=== PATIENT | female | born 1965 | race Caucasian/White ===

== ENCOUNTER 2020-07-01 13:32 | Inpatient (IN) | payer BC, SELFPAY ==
--- NOTE | ~2020-07-01 | XR_ITS ---
XR hip RT 2V w AP pelvis DATE: 07/01/2020 13:53 INDICATION: Fall. Hip pain. TECHNIQUE: AP pelvis. AP and crosstable lateral views of right hip COMPARISON: None FINDINGS: The pubic symphysis and sacroiliac joints are intact. No pelvic fracture or bone destructio n. No evidence of right or left hip dislocation. There is a right subcapital femoral neck fracture with mild superolateral displacement of the distal fragment. IMPRESSION: Right subcapital femoral neck fracture Reviewed, dictated and finalized at location A. GRAPH MECHANIC
--- NOTE | ~2020-07-01 | XR_ITS ---
XR femur RT min 2V DATE: 07/01/2020 13:53 INDICATION: Fall. Right hip pain TECHNIQUE: AP and crosstable lateral views of right femur COMPARISON: None FINDINGS: There is a superolaterally displaced right subcapital femoral neck fracture. No other fract ure or dislocation of the femur. IMPRESSION: Right subcapital femoral neck fracture Reviewed, dictated and finalized at location A. R AND GENERATOR ASSEMBLER
--- NOTE | ~2020-07-01 | XR_ITS ---
XR chest 1V portable DATE: 07/01/2020 14:15 INDICATION: Hypertension. Smoker. Surgical clearance. TECHNIQUE: Portable AP chest on July 01, 2020 at 1417 hours COMPARISON: None FINDINGS: Normal heart size. No hilar or mediastinal enlargement. No pulmonary infiltrate or consolid ation, pleural effusion or pulmonary vascular congestion or pneumothorax. IMPRESSION: No active cardiopulmonary disease Reviewed, dictated and finalized at location A. HER
--- NOTE | ~2020-07-01 | XR_ITS ---
XR hip RT min 2V DATE: 07/02/2020 14:21 INDICATION: Postoperative right hip TECHNIQUE: Postoperative AP and crosstable lateral views of right hip COMPARISON: 08/29/2020 right hip FINDINGS: There is resection of the right femoral head and placement of a bipolar right hip prosthesi s which appears normally seated in the right acetabular fossa. Mild expected postoperative subcutaneous emphysema. There are rohith along the lateral aspect of the right hip. IMPRESSION: Right bipolar hip prosthesis Reviewed, dictated and finalized at location B. ING TORCH OPERATOR
--- NOTE | ~2020-07-01 | XR_ITS ---
EXAMINATION: XR foot RT 2V DATE: 07/01/2020 20:29 INDICATION: Toe pain at the right foot post fall TECHNIQUE: Dorsoplantar and lateral views of the right foot were obtained. COMPARISON: None. FINDINGS: Alignment is normal. No fracture. Joint spaces are normal. Soft tissues are unremarkable. IMPRESSION: 1. Negative right foot radiographs. Reviewed, dictated and finalized at location A. NCE AND HAIRSPRING ASSEMBLER
[2020-07-01 13:27] VITALS: BP 124/79; PULSE 97; RESP 19; TEMP 36.6; O2SAT 97
--- NOTE | 2020-07-01 13:37 | ED.FALL ---
HPI - Fall General Chief Complaint: Fall Stated Complaint: fall - hip pain Source: patient Mode of arrival: EMS Limitations: no limitations History of Present Illness HPI Narrative: A 55-year-old female comes into the emergency department with complaints of right hip pain after a slip and fall at home. Patient states she was doing laundry when the bottle of detergent accidentally spilled. Patient states she excellently stepped in the puddle of soap slipped and fell down onto her right side. Patient now complains of extreme right hip pain and is unable to move her right leg secondary to pain. Related Data Home Medications Medication Instructions Recorded Confirmed hydrochlorothiazide 12.5 mg PO DAILY 07/01/20 07/01/20 Allergies Allergy/AdvReac Type Severity Reaction Status Date / Time No Known Allergies Allergy Verified 07/01/20 16:57 Review of Systems Review of Systems: Narrative: CONSTITUTIONAL: Denies fever, chills, or sweats. EYES: Denies visual changes, redness, or discharge. ENT: Denies rhinorrhea, congestion, sore throat, or otalgia. CARDIOVASCULAR: Denies chest pain, palpitations, or edema. RESPIRATORY: Denies cough or dyspnea. GASTROINTESTINAL: Denies abdominal pain, nausea, vomiting, or diarrhea. GENITOURINARY: Denies dysuria or hematuria. SKIN: Denies rash or itching. MUSCULOSKELETAL: Denies back pain, joint pain, or myalgia. Endorses right hip pain NEUROLOGIC: Denies headache, numbness, dizziness, or weakness. PSYCHIATRIC: Denies anxiety or depression. [facility] Past Medical History Medical History (Updated 07/05/20 @ 10:27 by Dorene Interiano PA-C) Benign essential HTN Chronic focal neurological deficit Fatty liver Hx of smoking Postmenopausal bleeding Seizure disorder Surgical History Surgical History (Updated 07/05/20 @ 16:08 by Brock Gallegos DO) Displaced fracture of right femoral neck Right bipolar replacement July 02, 2020 Hx of dilation and curettage Family History Family History Mother Hypertension Coronary artery disease Alzheimer's dementia Sibling Acute myocardial infarction Hypertension Fatty liver Father Hypertension Fatty liver Alzheimer's dementia Skin cancer Social History Social History Social History: Smoking packs per day: 1 Smoking cigarettes per day: 20.0 Years smoked: 1 Smoking pack-years: 1.00 Smoking status: Former smoker Tobacco type: cigarettes Second hand tobacco smoke exposure: No Alcohol intake: current Substance use: never Substance use type: does not use Other substance usage details: drinks alcohol about once a year Gender identity (if verbalized by the patient): Female Spiritual care concerns: No Exam Narrative: Exam Narrative: GENERAL: Well-appearing, well-nourished, and in no acute distress. HEAD: Normocephalic, atraumatic. EYES: PERRLA and EOMI. ENT: Nares clear, no rhinorrhea or epistaxis. Mucous membranes moist. Oropharynx without tonsillar hypertrophy exudate or other lesions. Bilateral TMs pearly beasley nonbulging NECK: Supple. No adenopathy or masses. No carotid bruits or JVD CHEST: Clear to auscultation. No respiratory distress. No wheezes rales or rhonchi HEART: Regular rate and rhythm. No murmur heard. Normal peripheral pulses. ABDOMEN: Soft, nontender, nondistended, normal active bowel sounds. EXTREMITIES: Normal range of motion. No edema. TTP at the right hip and pelvis, limited range of motion of the right leg secondary to pain SKIN: Warm, dry, no rash. NEURO: No focal deficits. Alert and oriented x3. PSYCH: Normal mood and affect. Course Consultations Consultation #1: Quick review of the patient's x-ray shows a subcapital/femoral neck fracture. Case discussed with Dr. Church of orthopedics. He states that he will review the x-rays and call me back. Time: 14:11 Con
--- NOTE | 2020-07-01 14:07 | ECG_ITS ---
Measurements Intervals [place] Rate: 97 P: 30 CT: 144 QRS: 9 QRSD: 85 T: 160 QT: 332 QTc: 423 Interpretive Statements SINUS RHYTHM VOLTAGE CRITERIA FOR LVH BORDERLINE ST-T WAVE ABNORMALITY- DIFFUSE LEADS BORDERLINE ECG Electronically Signed On 07-01-2020 19:55:17 BUILDING DRAFTER by Feliciano Torres D.O.
[2020-07-01] MEDS: MORPHINE SULFATE (*CRX) 4 MG/ML INJ IV PUSH (14:08)
[2020-07-01 14:34] LABS: Basophils Percent Auto 0.3 % (0.2-1.2); Eosinophils Absolute Auto 0.1 K/mm3 (0-0.3); Eosinophils Percent Auto 0.8 % (0-4.4); Hematocrit 44.5 % (37.0-47.0); Hemoglobin 14.5 g/dL (12.0-15.0); Immature Granulocyte Absolute 0.06 K/mm3 (0.00-0.031); Immature Granulocyte Percent A 0.7 % (0-0.5); Lymphocytes Absolute Auto 1.67 K/mm3 (0.9-3.2); Lymphocytes Percent Auto 19.5 % (18.3-44.2); Mean Corpuscular HGB Conc 32.6 g/dl (32-36); Mean Corpuscular Hemoglobin 28.6 pg (26-34); Mean Corpuscular Volume 87.8 fl (80-100); Mean Platelet Volume 10.7 fl (7.4-10.4); Monocytes Absolute Auto 0.7 K/mm3 (0.1-0.6); Monocytes Percent Auto 8.5 % (2.6-8.5); Neutrophils Percent Auto 70.2 % (45.5-73.1); Platelet Count Result 191 k/mm3 (150-375); Red Blood Count 5.07 M/mm3 (4.2-5.4); Red Cell Distribution Width 14.5 % (11.5-14.5); White Blood Count 8.6 K/mm3 (4.5-10.0)
[2020-07-01] MEDS: KETOROLAC 15 MG/ML VIAL (*BKC) IV PUSH (14:43)
[2020-07-01 14:48] LABS: Anion Gap 6 mmol/L (8-16); Blood Urea Nitrogen 21 mg/dL (7-17); Calcium 9.8 mg/dL (8.4-10.2); Carbon Dioxide 29 mmol/L (22-30); Chloride 104 mmol/L (98-107); Estimated CRCL calculation 78 ml/min; Estimated Glomerular Filt Rate > 60; Glucose 149 mg/dL (65-105); Potassium 3.9 mmol/L (3.4-5.0); Sodium 139 mmol/L (137-145)
[2020-07-01 16:00] VITALS: BP 123/67; PULSE 63; RESP 18; TEMP 36.3; O2SAT 99
--- NOTE | 2020-07-01 16:14 | WPDANESEPP ---
Anes - Eval Pre Procedure Procedure: right hip pinning Date/Time: 07/01/20 16:14 Surgeon: luz maria Preop Diagnosis: right hip fracture Pre Op Diagnosis: R Femoral neck hip fracture Patient Data Age: 55 Gender: F Height: 1.68 m Weight: 91.4 kg Last Vital Signs Temp 36.6 C 07/01/20 13:27 Pulse 97 07/01/20 13:27 Resp 19 07/01/20 13:27 BP 124/79 07/01/20 13:27 Pulse Ox 97 07/01/20 13:27 Allergies Allergy/AdvReac Type Severity Reaction Status Date / Time No Known Allergies Allergy Verified 07/01/20 13:35 Home Medications Medication Instructions Recorded Confirmed Type atenolol 100 mg tablet 100 mg PO DAILY #90 tablet 12/27/19 12/27/19 Rx benazepril 40 mg tablet 40 mg PO DAILY #90 tablet 12/29/19 Rx atenolol 50 mg PO DAILY 07/01/20 History hydrochlorothiazide 12.5 mg PO DAILY 07/01/20 History Laboratory Tests 07/01/20 07/01/20 14:24 14:24 WBC 8.6 K/mm3 K/mm3 (4.5-10.0) RBC 5.07 M/mm3 M/mm3 (4.2-5.4) Hgb 14.5 g/dL g/dL (12.0-15.0) Hct 44.5 % % (37.0-47.0) MCV 87.8 fl fl (80-100) MCH 28.6 pg pg (26-34) MCHC 32.6 g/dl g/dl (32-36) RDW 14.5 % % (11.5-14.5) Plt Count 191 k/mm3 k/mm3 (150-375) MPV 10.7 fl H fl (7.4-10.4) Immature Gran % (Auto) 0.7 % H % (0-0.5) Neut % (Auto) 70.2 % % (45.5-73.1) Lymph % (Auto) 19.5 % % (18.3-44.2) [place] % (Auto) 8.5 % % (2.6-8.5) Eos % (Auto) 0.8 % % (0-4.4) Baso % (Auto) 0.3 % % (0.2-1.2) Lymph # (Auto) 1.67 K/mm3 K/mm3 (0.9-3.2) [place] # (Auto) 0.7 K/mm3 H K/mm3 (0.1-0.6) Eos # (Auto) 0.1 K/mm3 K/mm3 (0-0.3) Baso # (Auto) 0.0 K/mm3 K/mm3 (0.0-0.1) Abs Immat Gran (auto) 0.06 K/mm3 H K/mm3 (0.00-0.031) Absolute Neuts (auto) 6.0 K/mm3 K/mm3 (1.3-6.7) Absolute Nucleated RBC 0.0 K/mm3 K/mm3 (0.0-0.012) Nucleated RBC % 0.0 % % (0.0-0.2) Sodium 139 mmol/L mmol/L (137-145) Potassium 3.9 mmol/L mmol/L (3.4-5.0) Chloride 104 mmol/L mmol/L (98-107) Carbon Dioxide 29 mmol/L mmol/L (22-30) Anion Gap 6 mmol/L L mmol/L (8-16) BUN 21 mg/dL H mg/dL (7-17) Creatinine 0.80 mg/dL mg/dL (0.7-1.0) Estim Creat Clear Calc 78 ml/min ml/min Estimated GFR > 60 (59 - ) Glucose 149 mg/dL H mg/dL (65-105) Calcium 9.8 mg/dL mg/dL (8.4-10.2) ECG: NSR Patient hx anesthesia problems: none Family hx anesthesia problems: none PMFSH Past Medical History Medical History Benign essential HTN Cerebral palsy Fatty liver Hx of smoking Postmenopausal bleeding Seizure disorder Surgical History Surgical History Hx of dilation and curettage Family History Family History Mother Hypertension Sibling Hypertension Social History Social History Social History: Smoking packs per day: 0.5 Smoking cigarettes per day: 10.0 Years smoked: 10 Smoking pack-years: 5.00 Smoking status: Former smoker Tobacco type: cigarettes Second hand tobacco smoke exposure: No Alcohol intake: never Substance use: never Substance use type: does not use Gender identity (if verbalized by the patient): Female Exam Day of Procedure 07/01/20 16:14
[2020-07-01 16:48] VITALS: BP 136/74; PULSE 93; RESP 18; O2SAT 99
--- NOTE | 2020-07-01 16:54 | ADMGEN ---
This patient, Britney Overton, was admitted to Medical Room 253-01. Patient/family oriented to hospital policies and general routines including ID bracelet, bed and alarms, visiting hours, pain management, procedures, bathroom and other care routines, personal items, smoking policy, room service/diet, and visiting hours. Information on how to activate the Rapid Response Team has been discussed. Patient/Family are encouraged to report perceived risks to care and to ask questions if they do not understand what they are told or what they should do.
--- NOTE | 2020-07-01 17:07 | PM.CNOR ---
Assessment and Plan Assessment and plan (1) Displaced fracture of right femoral neck: Code(s): S72.001A - Fracture of unspecified part of neck of right femur, initial encounter for closed fracture Status: Acute Assessment and Plan: 55-year-old female with history of CP and right-sided weakness. She has got an acute right femoral neck fracture. I discussed the condition with her. Recommend right bipolar hip replacement and will plan on doing this tomorrow as long as there are no medical contraindications. With her weakness on the right side, using a bipolar will likely have the least problem with potential dislocation. Smoking does put her at increased risk for wound healing issues and DVT.Risks and potential complications were discussed in detail and questions answered. History of Present Illness HPI Consult date: 07/01/20 Consult reason: fracture Chief complaint: R Femoral neck hip fracture Narrative: 55-year-old female who fell in her laundry room at her home earlier today suffering a displaced right femoral neck fracture. No other injuries with this occurrence. History significant for cerebral palsy which has left her with chronic right-sided weakness as well as a fatty liver. She is but lives with her ex- who she is friends with. Review of Systems Constitutional: Constitutional: Denies chills and Denies fever(s) Eyes: Eyes: Reports no additional eye complaints ENT: Reports system reviewed and no additional complaints, except as documented Cardiovascular: Cardiovascular: Denies chest pain Respiratory: Respiratory: Reports no additional respiratory complaints Gastrointestinal: Gastrointestinal: Denies abdominal pain Neurologic: Reports other (History of CP with right-sided weakness) [facility] Past Medical History Medical History Benign essential HTN Cerebral palsy Fatty liver Hx of smoking Postmenopausal bleeding Seizure disorder Surgical History Surgical History Hx of dilation and curettage Family History Family History Mother Hypertension Sibling Hypertension Social History Social History Social History: Smoking packs per day: 0.5 Smoking cigarettes per day: 10.0 Years smoked: 10 Smoking pack-years: 5.00 Smoking status: Former smoker Tobacco type: cigarettes Second hand tobacco smoke exposure: No Alcohol intake: never Substance use: never Substance use type: does not use Gender identity (if verbalized by the patient): Female Meds Home Medications and Allergies Home Medications Medication Instructions Recorded Confirmed Type atenolol 100 mg tablet 100 mg PO DAILY #90 tablet 12/27/19 12/27/19 Rx benazepril 40 mg tablet 40 mg PO DAILY #90 tablet 12/29/19 Rx atenolol 50 mg PO DAILY 07/01/20 History hydrochlorothiazide 12.5 mg PO DAILY 07/01/20 History Allergies Allergy/AdvReac Type Severity Reaction Status Date / Time No Known Allergies Allergy Verified 07/01/20 16:57 Vital Signs Vital Signs - 24 hr 07/01/20 13:27 07/01/20 16:48 Temperature 97.8 F Pulse Rate 97 93 Respiratory Rate 19 18 Blood Pressure 124/79 136/74 Pulse Oximetry 97 99 Exam Const: General: cooperative, no acute distress and alert Nutritional Appearance: other Orientation/consciousness: patient oriented x3 HENMT: Head: normal to inspection Ears: hearing grossly normal bilaterally Face and sinus: face symmetric Eyes: Alignment and Position: alignment normal and position normal Sclera: sclerae normal Neck: Neck: normal visual inspection and nontender Chest: Chest palpation & inspection: normal inspection of the chest Resp: Effort & Inspection: normal respiratory effort and able to speak in complete sentences
[2020-07-01 17:09] VITALS: BMI 34.7
[2020-07-01] MEDS: HYDROcodone/acetaminophen (*CRX) 5-325 MG TABLET 1 TAB PO (17:09)
[2020-07-01 20:00] VITALS: PULSE 80; RESP 18; O2SAT 96
--- NOTE | 2020-07-01 20:18 | PM.IMHP ---
H&P: HPI History of Present Illness Date/Time: 07/01/20 20:18 Chief Complaint: Acute fall and ambulatory dysfunction at home. Narrative: This is a 55 year old female with known history of HTN and chronic right side weakness and decreased sensation from who today presented to the hospital after suffering a fall at home. She heard a loud crash in the laundry room and didn't realize that her liquid detergent had fallen, broke, and spilled on the floor. She immediately slipped as she entered the room and fell on her right side which is her weak side. She immediately had right hip pain and was not able to ambulate. The patient denied any head trauma or loss of consciousness. She also complains of right great toe pain which she states is unusual because she cannot even wiggle her right toes due to her cerebral palsy since . The patient was evaluated in the ER tonight and found to have a right subcapital femoral neck fracture on plain film xray. She was already evaluated by the Orthopedic surgeon who will take her to the OR tomorrow. Currently her pain is well controlled. No other complaints. Review of Systems Review of Systems: All systems reviewed & are unremarkable except as noted in HPI and below PMFSH Past Medical History Medical History Benign essential HTN Chronic focal neurological deficit Fatty liver Hx of smoking Postmenopausal bleeding Seizure disorder Surgical History Surgical History Displaced fracture of right femoral neck Right bipolar replacement July 02, 2020 Hx of dilation and curettage Family History Family History Mother Hypertension Coronary artery disease Alzheimer's dementia Sibling Acute myocardial infarction Hypertension Fatty liver Father Hypertension Fatty liver Alzheimer's dementia Skin cancer Social History Social History Social History: Smoking packs per day: 1 Smoking cigarettes per day: 20.0 Years smoked: 1 Smoking pack-years: 1.00 Smoking status: Former smoker Tobacco type: cigarettes Second hand tobacco smoke exposure: No Alcohol intake: current Substance use: never Substance use type: does not use Other substance usage details: drinks alcohol about once a year Gender identity (if verbalized by the patient): Female Spiritual care concerns: No Meds Home Medications and Allergies Home Medications Medication Instructions Recorded Confirmed Type atenolol 100 mg tablet 100 mg PO DAILY #90 tablet 12/27/19 07/01/20 Rx benazepril 40 mg tablet 40 mg PO DAILY #90 tablet 12/29/19 07/01/20 Rx hydrochlorothiazide 12.5 mg PO DAILY 07/01/20 07/01/20 History cephalexin 500 mg PO Q12H 5 Days #10 cap 07/05/20 Rx docusate sodium 100 mg PO BID PRN #30 cap 07/05/20 Rx hydrocodone-acetaminophen 1 tablet PO QID PRN #30 tablet 07/05/20 Rx rivaroxaban [Xarelto] 10 mg PO QAM #13 tablet 07/05/20 Rx Allergies Allergy/AdvReac Type Severity Reaction Status Date / Time No Known Allergies Allergy Verified 07/01/20 16:57 Vital Signs Vital Signs - 24 hr 07/01/20 13:27 07/01/20 16:00 07/01/20 16:48 Temperature 36.6 C 36.3 C L Pulse Rate 97 63 93 Respiratory Rate 19 18 18 Blood Pressure 124/79 123/67 136/74 Pulse Oximetry 97 99 99 Exam Const: General: cooperative, alert and awake Nutritional Appearance: well nourished Orientation/consciousness: patient oriented x3 HENMT: Head: normal to inspection General nose exam: Normal external nose present Face and sinus: normal facial exam Mouth: Yes Normal oral and palatal mucosa present and Yes oropharynx normal Eyes: Pupils: Equal, round and reactive pupils present EOM: EOMs intact bilaterally Neck: Neck: supple and no JVD Thyroid: thyroid normal L
[2020-07-01 22:00] VITALS: BP 109/48; PULSE 80; RESP 18; TEMP 36.2; O2SAT 96
[2020-07-02] VITALS (14 sets, daily range): BP systolic 110–132; BP diastolic 61–84; PULSE 65–99; RESP 14–18; TEMP 36.6–37.5; O2SAT 83–100
[2020-07-02] MEDS: HYDROcodone/acetaminophen (*CRX) 5-325 MG TABLET 1 TAB PO ×2 (02:47→23:27)
[2020-07-02 05:52] LABS: Basophils Percent Auto 0.3 % (0.2-1.2); Eosinophils Percent Auto 0.3 % (0-4.4); Hemoglobin 13.1 g/dL (12.0-15.0); Immature Granulocyte Absolute 0.04 K/mm3 (0.00-0.031); Immature Granulocyte Percent A 0.3 % (0-0.5); Lymphocytes Absolute Auto 1.79 K/mm3 (0.9-3.2); Lymphocytes Percent Auto 15.6 % (18.3-44.2); Mean Corpuscular HGB Conc 32.8 g/dl (32-36); Mean Corpuscular Hemoglobin 28.5 pg (26-34); Mean Corpuscular Volume 87.1 fl (80-100); Mean Platelet Volume 10.4 fl (7.4-10.4); Monocytes Absolute Auto 1.1 K/mm3 (0.1-0.6); Monocytes Percent Auto 9.5 % (2.6-8.5); Neutrophils Absolute Auto 8.5 K/mm3 (1.3-6.7); Platelet Count Result 179 k/mm3 (150-375); Red Blood Count 4.59 M/mm3 (4.2-5.4); Red Cell Distribution Width 14.7 % (11.5-14.5); White Blood Count 11.5 K/mm3 (4.5-10.0)
[2020-07-02 06:20] LABS: Anion Gap 4 mmol/L (8-16); Blood Urea Nitrogen 20 mg/dL (7-17); Calcium 9.2 mg/dL (8.4-10.2); Carbon Dioxide 29 mmol/L (22-30); Chloride 106 mmol/L (98-107); Estimated CRCL calculation 72 ml/min; Estimated Glomerular Filt Rate > 60; Glucose 140 mg/dL (65-105); Sodium 139 mmol/L (137-145)
--- NOTE | 2020-07-02 10:20 | PC.NURSE ---
07/02/20 1020 Patient to OR per bed.
--- NOTE | 2020-07-02 10:26 | PM.IMPN ---
Progress Note: A&P Assessment and Plan (1) Displaced fracture of right femoral neck: Code(s): S72.001A - Fracture of unspecified part of neck of right femur, initial encounter for closed fracture Status: Acute Assessment and Plan: Patient sustained mechanical fall at home 07/01. She denies striking her head or losing consciousness. XR shows displaced right subcapital femoral neck fracture. Appreciate Dr Church's recommendations. Plan is for right bipolar hip replacement this morning. Postoperative wound care, pain control, and DVT prophylaxis per orthopedic recommendations. (2) Benign essential HTN: Code(s): I10 - Essential (primary) hypertension Status: Chronic Assessment and Plan: Blood pressure stable this morning last 127/68; continue her home atenolol, lisinopril, HCTZ. Monitor BP and adjust treatment as needed. (3) Chronic focal neurological deficit: Code(s): R29.818 - Other symptoms and signs involving the nervous system Status: Chronic Assessment and Plan: Patient has cerebral palsy listed in the chart however she tells me she does not actually have a diagnosis of CP. She has had right-sided arm and leg neurovascular deficits since . She tells me she normally ambulates without a cane or walker. No acute issues. (4) Leukocytosis: Code(s): D72.829 - Elevated white blood cell count, unspecified Status: Acute Assessment and Plan: A mild leukocytosis is noted which I suspect may be related to stress reaction/trauma. No signs or symptoms of infectious process are noted at this time. Repeat CBC in AM. Subjective Date/time seen: 07/02/20 0900 Interval history: Ms. Overton is a 55yo F admitted for right hip fracture after a mechanical fall at home yesterday. She reports her pain is controlled at rest, worse when she makes any movement in the bed. She did not sleep much last night but otherwise feels okay. She denies chest pain, shortness of breath or cough. She denies nausea or vomiting. Review of Systems Review of Systems: All systems reviewed & are unremarkable except as noted in HPI and below Exam Narrative: Exam Narrative: General: Female resting supine in bed in no acute distress. HEENT: Normocephalic, EOMI, oral mucosa moist. Cardiovascular: Rate and rhythm are regular. Respiratory: Lungs clear to auscultation bilaterally. Respirations even and non-labored. Abdomen: Soft, non-tender, non-distended, bowel sounds present. Extremities: Peripheral pulses intact. No edema or pain to palpation. Right upper extremity is a bit contracted; this is chronic and her baseline. Right lower extremity is neurovascularly intact distal to the fracture site and she can wiggle toes CATHERINE. Neuro: No focal neurological deficits. Speech is mildly drawn-out which is her baseline. Objective Data Vital Signs Vital Signs: Last Vital Signs Temp 97.8 F 07/02/20 10:30 Pulse 78 07/02/20 10:30 Resp 16 07/02/20 10:30 BP 127/68 07/02/20 10:30 Pulse Ox 95 07/02/20 10:30 Intake/Output Intake/Output: Intake & Output 06/29/20 06/30/20 07/01/20 07/02/20 23:59 23:59 23:59 23:59 Intake Total 500 Output Total 1300 Balance 500 -1300 Meds/Results Medications: Active Medications Generic Name Dose Route Start Last Admin Trade Name Freq PRN Reason Stop Dose Admin Hydrocodone Bitart/Acetaminophen 1 tab 07/01/20 14:27 07/02/20 02:47 Hydrocodone/Acetaminophen (*Crx) 5-325 Mg Tablet PO 1 tab Q4H PRN Administration Pain Rated 4-6 Atenolol 100 mg 07/02/20 09:00 Atenolol 50 Mg Tablet PO DAILY [facility] Hydrochlorothiazide 12.5 mg 07/02/20 09:00 Hydrochlorothiazide 12.5 Mg Capsule PO DAILY [facility] Lisinopril 40 mg 07/02/20 09:00 Lisinop
--- NOTE | 2020-07-02 10:52 | WPDANESEFPP ---
Anes - Eval Final PreProcedure Day of Procedure 07/02/20 10:52 Patient weight: obese Heart: regular rate and rhythm Lungs: clear to auscultation and normal air movement Airway: Mallampati scale class III Neurological: alert and oriented Last oral intake: >/= 8 hours ASA classification: III Emergent: no Anesthetic plan: proceed Anesthesia type and monitoring: general LMA and standard monitoring Informed Consent: The patient's anesthetic plan and its attendant risks and benefits were discussed with the patient/family/POA. Questions were solicited and answers provided to the satisfaction of the patient/family/POA.
--- NOTE | 2020-07-02 10:55 | WPDHPUPDATE1 ---
History and Physical Update Update Date/Time: 07/02/20 10:55 History and Physical has been reviewed, including an updated exam of the patient. There are NO changes in the patient's condition. Risks, benefits, and alternatives have been discussed and questions answered. Patient agrees to proceed with procedure.
[2020-07-02] MEDS: LACTATED RINGERS 1,000 ML 30 ML IV CONT ×2 (10:58→14:07)
[2020-07-02] MEDS: TRANEXAMIC ACID 1,000MG/ISO100 1,000 MG/100 ML BAG 200 MG IVPB (11:19)
[2020-07-02] MEDS: ceFAZolin 2 GM/D5W 50 ML 2 GM/50 ML BAG IVPB ×2 (11:27→19:14)
[2020-07-02] MEDS: BUPIVACAINE/EPINEPHRINE 0.25% 50 ML VIAL INFILTRATE (12:16)
[2020-07-02] MEDS: TRANEXAMIC ACID 1,000 MG/10 ML AMPUL 1000 MG XX (12:17)
--- NOTE | 2020-07-02 13:56 | PM.PROC ---
Procedure Note - Detailed Date of procedure: 07/02/20 Pre-op diagnosis: R Femoral neck hip fracture Post-op diagnosis: same Procedure performed: Right hip bipolar hemiarthroplasty Description of procedure: The patient was identified and proper site identified, then taken back to the operating room and transferred to the OR table. After general anesthetic induction and intubation, the patient was positioned in the left lateral decubitus position in the usual manner for a right hip procedure, and secured with padded hip positioner making sure the torso and extremities were properly padded. The right lower extremity was prepped and draped in the usual sterile fashion. A curvilinear incision was made over the greater trochanter and sharp dissection carried down through the subcutaneous tissue to the gluteus fascia and IT band which were divided in line with the incision. The anterior 1/2 of the abductors were sharply dissected off the greater trochanter developing the interval between the abductors and the capsule. The capsule was divided in an inverted-T fashion exposing the fracture site. A neck cut was made about one fingerbreadth above the level of the lesser trochanter. Head fragment was removed and the acetabulum cleared of debris. The acetabulum was sized to 44 mm. The proximal femur was prepared for the size 10 integral pressfit standard offset stem. Trial reduction was undertaken and the hip was noted to be stable through range of motion. The real stem was inserted. Through trialing it was noted that a size 28 minus six head with 44 cup configuration gave jain of leg lengths with excellent stability. The neck of the femoral component was cleaned and dried and the real components in those sizes were attached to the femoral stem. After final thorough lavage of the joint, the hip was again reduced. The capsule and ashlie-incisional tissues were infiltrated with 60 mL of 0.25% Marcaine and epinephrine solution. 1 g of tranexamic acid was placed deep in the wound. The capsule was repaired with #2 Ethibond suture. The abductors were repaired to the greater trochanter with #5 Ethibond suture passed through a bony bridge. The deep fascia was reapproximated with 0 looped PDS suture. Deeper layers of the subcu reapproximated with 0 looped PDS. 2-0 strata fix and rohith were used for the skin, and a sterile dressing was applied. Procedure was well tolerated and there were no known intraoperative complications. Anesthesia: GETA Surgeon: Jorge Alberto Church MD Radar Signal Processing Engineer: Riddhi Vang Estimated blood loss (mL): 250 Drains: No Packing: No Pathology: yes (Femoral head) Complications: No immediate complications Condition: stable Disposition: PACU
[2020-07-02] MEDS: lisinopriL 20 MG TABLET 40 MG PO (15:23)
[2020-07-02] MEDS: atenoloL 50 MG TABLET 100 MG PO (15:23)
[2020-07-02] MEDS: hydroCHLOROthiazide 12.5 MG CAPSULE PO (15:24)
[2020-07-02] MEDS: SODIUM CHLORIDE 0.9% IV 1,000 ML 125 ML IV CONT (15:37)
[2020-07-02] MEDS: DOCUSATE SODIUM 100 MG CAPSULE PO (16:42)
--- NOTE | 2020-07-02 19:18 | PC.NURSE ---
Pt return from OR per bed at 1520 07/02/20.
[2020-07-02] MEDS: HYDROcodone/acetaminophen (*CRX) 5-325 MG TABLET 2 TAB PO (19:32)
[2020-07-03] VITALS (7 sets, daily range): BP systolic 98–105; BP diastolic 48–70; PULSE 78–107; RESP 12–20; TEMP 36.6–37.6; O2SAT 90–98
[2020-07-03] MEDS: ceFAZolin 2 GM/D5W 50 ML 2 GM/50 ML BAG IVPB ×2 (03:33→11:47)
[2020-07-03] MEDS: HYDROcodone/acetaminophen (*CRX) 5-325 MG TABLET 2 TAB PO (03:33)
[2020-07-03 05:39] LABS: Basophils Percent Auto 0.3 % (0.2-1.2); Eosinophils Percent Auto 0.1 % (0-4.4); Hemoglobin 12.4 g/dL (12.0-15.0); Immature Granulocyte Absolute 0.07 K/mm3 (0.00-0.031); Immature Granulocyte Percent A 0.6 % (0-0.5); Lymphocytes Absolute Auto 1.88 K/mm3 (0.9-3.2); Lymphocytes Percent Auto 16.3 % (18.3-44.2); Mean Corpuscular HGB Conc 31.8 g/dl (32-36); Mean Corpuscular Hemoglobin 28.7 pg (26-34); Mean Corpuscular Volume 90.3 fl (80-100); Mean Platelet Volume 10.4 fl (7.4-10.4); Monocytes Absolute Auto 1.5 K/mm3 (0.1-0.6); Neutrophils Percent Auto 69.7 % (45.5-73.1); Platelet Count Result 163 k/mm3 (150-375); Red Blood Count 4.32 M/mm3 (4.2-5.4); Red Cell Distribution Width 15.3 % (11.5-14.5); White Blood Count 11.5 K/mm3 (4.5-10.0)
[2020-07-03 06:00] LABS: Anion Gap 3 mmol/L (8-16); Blood Urea Nitrogen 12 mg/dL (7-17); Calcium 8.8 mg/dL (8.4-10.2); Carbon Dioxide 30 mmol/L (22-30); Chloride 106 mmol/L (98-107); Estimated CRCL calculation 72 ml/min; Estimated Glomerular Filt Rate > 60; Glucose 136 mg/dL (65-105); Potassium 4.1 mmol/L (3.4-5.0); Sodium 139 mmol/L (137-145)
--- NOTE | 2020-07-03 07:16 | PM.PNORT ---
Progress Note: A&P Assessment and Plan (1) Displaced fracture of right femoral neck: Code(s): S72.001A - Fracture of unspecified part of neck of right femur, initial encounter for closed fracture Status: Acute Assessment and Plan: 55-year-old female postop day one right hip hemiarthroplasty. Surgery discussed with her. Will begin physical therapy. She may be a candidate for acute rehab before going home and we discussed this today. Following. Time Spent With Patient Time with patient: 15 - 25 minutes Subjective Subjective Date/Time Seen: 07/03/20 07:16 Review of Systems Constitutional: Constitutional: Denies chills Eyes: Eyes: Reports no additional eye complaints ENT: Reports system reviewed and no additional complaints, except as documented Cardiovascular: Cardiovascular: Denies chest pain Respiratory: Respiratory: Reports no additional respiratory complaints Gastrointestinal: Gastrointestinal: Denies abdominal pain and Denies bloating Exam Const: General: cooperative, no acute distress and alert Nutritional Appearance: other Orientation/consciousness: patient oriented x3 HENMT: Head: normal to inspection Ears: hearing grossly normal bilaterally Face and sinus: face symmetric Mouth: Yes moist mucous membranes Teeth and gingiva: fair dentition Eyes: Alignment and Position: alignment normal and position normal Sclera: sclerae normal Neck: Neck: normal visual inspection and nontender Chest: Chest palpation & inspection: normal inspection of the chest Resp: Effort & Inspection: normal respiratory effort and able to speak in complete sentences GI: Inspection: other (Belly nondistended) Skin: General skin exam: normal color Rashes: no rashes Neuro: General: patient oriented x3 Cognition (Neuro): normal cognition Speech: normal speech Extrem: General: normal to inspection and other Other: Exam of the right hip wound shows that it is well approximated with no drainage. Minimal swelling and no erythema. Neurovascular status baseline right lower extremity. Calves negative. Psych: Appearance: grossly normal Mental Status: mental status grossly normal Objective Data Vital Signs Vital Signs: Vital Signs - 24 hr 07/02/20 10:30 07/02/20 14:07 07/02/20 14:20 Temperature 97.8 F 99.5 F Pulse Rate 78 89 77 Respiratory Rate 16 16 14 Blood Pressure 127/68 110/84 130/68 Pulse Oximetry 95 100 100 07/02/20 14:35 07/02/20 14:50 07/02/20 15:05 Temperature 99.5 F Pulse Rate 99 79 80 Respiratory Rate 18 16 14 Blood Pressure 116/67 121/75 125/74 Pulse Oximetry 94 95 93 07/02/20 15:13 07/02/20 15:20 07/02/20 15:23 Temperature 98.4 F Pulse Rate 83 86 Respiratory Rate 16 Blood Pressure 123/61 Pulse Oximetry 83 L 98 07/02/20 15:28 07/02/20 15:58 07/02/20 16:58 Temperature 98.6 F 99.4 F 99.4 F Pulse Rate 81 85 87 Respiratory Rate 16 16 16 Blood Pressure 125/63 129/64 132/80 Pulse Oximetry 97 98 07/02/20 20:58 07/03/20 00:58 07/03/20 04:58 Temperature 98.3 F 97.9 F 97.8 F Pulse Rate 82 78 79 Respiratory Rate 18 16 16 Blood Pressure 115/70 101/48 L 98/59 L Pulse Oximetry 97 94 93 Intake/Output Intake/Output: Intake & Output 06/30/20 07/01/20 07/02/20 07/03/20 23:59 23:59 23:59 23:59 Intake Total 500 / 500 850 / 850 300 / 300 Output Total 2325 / 2325 300 / 300 Balance 500 / 500 -1475 / -1475 0 / 0 Meds/Results Medications: Active Medications Generic Name Dose Route Start Last Admin Trade Name Freq PRN Reason Stop Dose Admin Acetaminophen 650 mg 07/02/20 15:13 Acetaminophen 325 Mg Tablet PO Q6H PRN Mild Pain (1-3) or Fever Hydrocodone Bitart/Acetaminophen 1 tab 07/02/20 15:13 07/02/20 23:27 Hydrocodone/Acetaminophen (*Crx) 5-325 Mg Tablet PO 1 tab Q3H PRN Administration Pain Rated 4-6 Hydrocodone Bitart/Acetaminophen 2 tab 07/02/20 15:13 07/03/20 03:33 Hydrocodone/Acetaminophen (*Crx) 5-325 Mg T
[2020-07-03] MEDS: DOCUSATE SODIUM 100 MG CAPSULE PO ×2 (08:32→17:20)
--- NOTE | 2020-07-03 08:37 | WPDANESPN ---
Anes - Prog Note Post-Op Date/Time: 07/03/20 08:37 Cardiovascular status: normal Respiratory status: normal Airway patency: baseline Mental status: baseline Post-Op hydration status: normal Vital Signs: Last Vital Signs Temp 36.6 C 07/03/20 04:58 Pulse 79 07/03/20 04:58 Resp 16 07/03/20 04:58 BP 98/60 L 07/03/20 08:27 Pulse Ox 93 07/03/20 04:58 Pain Score (VAS): 3 I/O: Intake & Output 07/02/20 07/03/20 07/03/20 23:59 07:59 15:59 Intake Total 300 400 Output Total 900 450 Balance -600 -50 Laboratory Tests 07/03/20 05:12 07/03/20 05:12 07/03/20 07/03/20 05:12 05:12 WBC 11.5 H RBC 4.32 Hgb 12.4 Hct 39.0 MCV 90.3 MCH 28.7 MCHC 31.8 L RDW 15.3 H Plt Count 163 MPV 10.4 Immature Gran % (Auto) 0.6 H Neut % (Auto) 69.7 Lymph % (Auto) 16.3 L [place] % (Auto) 13.0 H Eos % (Auto) 0.1 Baso % (Auto) 0.3 Lymph # (Auto) 1.88 [place] # (Auto) 1.5 H Eos # (Auto) 0.0 Baso # (Auto) 0.0 Abs Immat Gran (auto) 0.07 H Absolute Neuts (auto) 8.0 H Absolute Nucleated RBC 0.0 Nucleated RBC % 0.0 Sodium 139 Potassium 4.1 Chloride 106 Carbon Dioxide 30 Anion Gap 3 L BUN 12 D Creatinine 0.90 Estim Creat Clear Calc 72 Estimated GFR > 60 Glucose 136 H Calcium 8.8 Post-procedural complaints: none Patient Feedback: Patient satisfied with anesthetic care.
[2020-07-03] MEDS: HYDROcodone/acetaminophen (*CRX) 5-325 MG TABLET 1 TAB PO ×2 (10:11→17:20)
--- NOTE | 2020-07-03 11:16 | PM.IMPN ---
Progress Note: A&P Assessment and Plan (1) Displaced fracture of right femoral neck: Code(s): S72.001A - Fracture of unspecified part of neck of right femur, initial encounter for closed fracture Status: Acute Assessment and Plan: Status post right hemiarthroplasty 07/02/[address] loera -patient is doing well with physical therapy and will likely discharge in the next day or 2 -currently on Xarelto 10 mg daily for DVT prophylaxis -will see how she does with PT and OT and decide if she needs acute rehab versus SNF versus home health (2) Benign essential HTN: Code(s): I10 - Essential (primary) hypertension Status: Chronic Assessment and Plan: Blood pressure has been running low but patient has been asymptomatic -will hold the lisinopril, hydrochlorothiazide and atenolol today (3) Toe pain, right: Code(s): M79.674 - Pain in right toe(s) Status: Acute Assessment and Plan: No complaints today -x-ray negative for fracture Time Spent With Patient Time with patient: 15 - 25 minutes Subjective Date/time seen: 07/03/20 11:16 Interval history: Pt is a 55 year old here for hip fracture. Patient was seen today and states she is doing well. She had her pain under control but after she started doing therapy this morning did need some pain medications. She said she has been up and walking a little bit and feels okay. Pt denies nausea, vomiting, fevers, chills, constipation, diarrhea, chest pain, sob, lightheadedness, dizziness or abdominal pain. She has not had a bowel movement yet Review of Systems Review of Systems: All systems reviewed & are unremarkable except as noted in HPI and below Exam Narrative: Exam Narrative: General: Well developed well nourished patient in NAD HEENT: normocephalic Neck: supple, no pain to the cervical spine Neuro: Alert and oriented x4 CV:RRR Resp:CTA Abd: Soft, non distended. No pain to palpation. Positive bowel sounds Extremities: Right hip bandage intact without erythema, swelling or discharge. Patient is slightly weak on plantar flexion but states this is chronic. Objective Data Vital Signs Vital Signs: Vital Signs - 24 hr 07/02/20 14:07 07/02/20 14:20 07/02/20 14:35 Temperature 99.5 F Pulse Rate 89 77 99 Respiratory Rate 16 14 18 Blood Pressure 110/84 130/68 116/67 Pulse Oximetry 100 100 94 07/02/20 14:50 07/02/20 15:05 07/02/20 15:13 Temperature 99.5 F 98.4 F Pulse Rate 79 80 83 Respiratory Rate 16 14 16 Blood Pressure 121/75 125/74 123/61 Pulse Oximetry 95 93 83 L 07/02/20 15:20 07/02/20 15:23 07/02/20 15:28 Temperature 98.6 F Pulse Rate 86 81 Respiratory Rate 16 Blood Pressure 125/63 Pulse Oximetry 98 97 07/02/20 15:58 07/02/20 16:58 07/02/20 20:58 Temperature 99.4 F 99.4 F 98.3 F Pulse Rate 85 87 82 Respiratory Rate 16 16 18 Blood Pressure 129/64 132/80 115/70 Pulse Oximetry 98 97 07/03/20 00:58 07/03/20 04:58 07/03/20 08:27 Temperature 97.9 F 97.8 F Pulse Rate 78 79 Respiratory Rate 16 16 Blood Pressure 101/48 L 98/59 L 98/60 L Pulse Oximetry 94 93 07/03/20 08:58 Temperature 97.8 F Pulse Rate 83 Respiratory Rate 16 Blood Pressure Pulse Oximetry 98 Intake/Output Intake/Output: Intake & Output 06/30/20 07/01/20 07/02/20 07/03/20 23:59 23:59 23:59 23:59 Intake Total 500 850 880 Output Total 2325 450 Balance 500 -1475 430 Meds/Results Medications: Active Medications Generic Name Dose Route Start Last Admin Trade Name Freq PRN Reason Stop Dose Admin Acetaminophen 650 mg 07/02/20 15:13 Acetaminophen 325 Mg Tablet PO Q6H PRN Mild Pain (1-3) or Fever Hydrocodone Bitart/Acetaminophen 1 tab 07/02/20 15:13 07/03/20 10:11 Hydrocodone/Acetaminophen (*Crx) 5-325 Mg Tablet PO 1 tab Q3H PRN Administration Pain Rated 4-6 Hydrocodone Bitart/Acetaminophen 2 tab 07/02/20 15:13 07/03/20 03:33 Hydrocodone/Ac
[2020-07-03] MEDS: RIVAROXABAN 10 MG TABLET PO (14:47)
[2020-07-04] VITALS (7 sets, daily range): BP systolic 97–132; BP diastolic 64–82; PULSE 79–100; RESP 16–20; TEMP 36.1–37.3; O2SAT 94–97
[2020-07-04] MEDS: HYDROcodone/acetaminophen (*CRX) 5-325 MG TABLET 1 TAB PO ×3 (00:08→13:02)
[2020-07-04 05:54] LABS: Hematocrit 36.8 % (37.0-47.0); Hemoglobin 11.7 g/dL (12.0-15.0); Mean Corpuscular HGB Conc 31.8 g/dl (32-36); Mean Corpuscular Hemoglobin 28.7 pg (26-34); Mean Corpuscular Volume 90.2 fl (80-100); Mean Platelet Volume 10.6 fl (7.4-10.4); Platelet Count Result 146 k/mm3 (150-375); Red Blood Count 4.08 M/mm3 (4.2-5.4); Red Cell Distribution Width 15.3 % (11.5-14.5); White Blood Count 12.1 K/mm3 (4.5-10.0)
[2020-07-04 06:11] LABS: Alanine Aminotransferase 34 U/L (4-35); Albumin Level 3.6 g/dL (3.5-5.1); Alkaline Phosphatase 44 U/L (38-126); Anion Gap 5 mmol/L (8-16); Aspartate Amino Transferase 51 U/L (14-36); Bilirubin,Total 2.1 mg/dL (0.2-1.3); Blood Urea Nitrogen 15 mg/dL (7-17); Carbon Dioxide 29 mmol/L (22-30); Chloride 103 mmol/L (98-107); Estimated CRCL calculation 81 ml/min; Estimated Glomerular Filt Rate > 60; Glucose 124 mg/dL (65-105); Potassium 3.7 mmol/L (3.4-5.0); Sodium 137 mmol/L (137-145)
[2020-07-04] MEDS: DOCUSATE SODIUM 100 MG CAPSULE PO ×2 (08:34→16:59)
[2020-07-04] MEDS: lisinopriL 20 MG TABLET 40 MG PO (10:14)
[2020-07-04] MEDS: hydroCHLOROthiazide 12.5 MG CAPSULE PO (10:15)
[2020-07-04] MEDS: atenoloL 50 MG TABLET 100 MG PO (10:15)
[2020-07-04] MEDS: RIVAROXABAN 10 MG TABLET PO (10:17)
--- NOTE | 2020-07-04 11:24 | PM.PNORT ---
Progress Note: A&P Assessment and Plan (1) Displaced fracture of right femoral neck: Code(s): S72.001A - Fracture of unspecified part of neck of right femur, initial encounter for closed fracture Status: Acute Assessment and Plan: 55-year-old female postop day two right hip bipolar hemiarthroplasty and doing well. Awaiting placement for rehab. Following. Time Spent With Patient Time with patient: 15 - 25 minutes Subjective Subjective Date/Time Seen: 07/04/20 11:24 Post Op day: 2 (Right hip bipolar hemiarthroplasty) Interval history: 55-year-old female postop day two right hip bipolar hemiarthroplasty. Not having much pain, rather just some stiffness in her right leg. Review of Systems Constitutional: Constitutional: Denies fever(s) Eyes: Eyes: Reports no additional eye complaints ENT: Reports system reviewed and no additional complaints, except as documented Cardiovascular: Cardiovascular: Denies dyspnea on exertion Respiratory: Respiratory: Reports no additional respiratory complaints Gastrointestinal: Gastrointestinal: Denies abdominal pain Exam Const: General: cooperative, no acute distress and alert Nutritional Appearance: other Orientation/consciousness: patient oriented x3 HENMT: Head: normal to inspection Ears: hearing grossly normal bilaterally Face and sinus: face symmetric Mouth: Yes moist mucous membranes Teeth and gingiva: fair dentition Eyes: Alignment and Position: alignment normal and position normal Sclera: sclerae normal Neck: Neck: normal visual inspection and nontender Chest: Chest palpation & inspection: normal inspection of the chest Resp: Effort & Inspection: normal respiratory effort and able to speak in complete sentences GI: Inspection: other (Nondistended) Skin: General skin exam: normal color Rashes: no rashes Neuro: General: patient oriented x3 Cognition (Neuro): normal cognition Speech: normal speech Sensory Exam: normal sensation Extrem: General: normal to inspection and other Other: Exam of the right hip wound shows that it is well opposed. No erythema. Minimal swelling. Right hip manipulation causes some discomfort. Right lower extremity neurovascular status stable. Psych: Appearance: grossly normal Mental Status: mental status grossly normal Objective Data Vital Signs Vital Signs: Vital Signs - 24 hr 07/03/20 14:00 07/03/20 18:00 07/03/20 20:00 Temperature 98.7 F 99.7 F H 97.8 F Pulse Rate 82 103 H 107 H Respiratory Rate 16 12 20 Blood Pressure 101/56 L 104/66 105/70 Pulse Oximetry 93 90 94 07/04/20 02:00 07/04/20 05:15 07/04/20 08:39 Temperature 97.1 F L 96.9 F L Pulse Rate 79 95 Respiratory Rate 20 20 Blood Pressure 102/68 132/82 128/80 Pulse Oximetry 94 97 07/04/20 10:15 Temperature Pulse Rate 100 Respiratory Rate Blood Pressure Pulse Oximetry Intake/Output Intake/Output: Intake & Output 07/01/20 07/02/20 07/03/20 07/04/20 23:59 23:59 23:59 23:59 Intake Total 500 / 500 850 / 850 980 / 980 710 / 710 Output Total 2325 / 2325 550 / 550 300 / 300 Balance 500 / 500 -1475 / -1475 430 / 430 410 / 410 Meds/Results Medications: Active Medications Generic Name Dose Route Start Last Admin Trade Name Freq PRN Reason Stop Dose Admin Acetaminophen 650 mg 07/02/20 15:13 Acetaminophen 325 Mg Tablet PO Q6H PRN Mild Pain (1-3) or Fever Hydrocodone Bitart/Acetaminophen 1 tab 07/02/20 15:13 07/04/20 08:33 Hydrocodone/Acetaminophen (*Crx) 5-325 Mg Tablet PO 1 tab Q3H PRN Administration Pain Rated 4-6 Hydrocodone Bitart/Acetaminophen 2 tab 07/02/20 15:13 07/03/20 03:33 Hydrocodone/Acetaminophen (*Crx) 5-325 Mg Tablet PO 2 tab Q6H PRN Administration Pain Rated 7-10 Al Hydrox/Mg Hydrox/Simethicone 30 ml 07/02/20 15:13 Mag Hydrox/Al Hydrox/Simeth 30 Ml Udc PO Q6H PRN Indigestion Atenolol 100 mg 07/02/20 09:00 07/04/20 10:15 Atenolol 50 Mg
[2020-07-04 13:11] LABS: Add Urine Microscopic? YES; Appearance Urine Cloudy (Clear); Bacteria Urine Trace /hpf; Bilirubin Urine Negative (Negative); Blood Urine Negative (Negative); Color Urine Yellow (Yellow); Glucose Urine UA 3+ mg/dL (Negative); Ketones Urine Trace mg/dL (Negative); Leukocyte Esterase Ur 1+ LEU/UL (Negative); Mucus Urine Rare /lpf; Nitrate Urine Negative (Negative); Protein Urine 1+ mg/dL (Negative); Specific Grav Ur 1.018 (1.001-1.035); Squamous Epithelial Cell Urine Many /hpf (Few); WBC Urine 31-50 /hpf
[2020-07-04 13:13] LABS: SARS-CoV-2 RNA PCR Negative
--- NOTE | 2020-07-04 13:34 | PM.IMPN ---
Progress Note: A&P Assessment and Plan (1) Displaced fracture of right femoral neck: Code(s): S72.001A - Fracture of unspecified part of neck of right femur, initial encounter for closed fracture Status: Acute Assessment and Plan: Status post right hemiarthroplasty 07/02/[address] loera -patient is doing well with physical therapy and will likely discharge in the next day or 2. awaiting insurance auth -currently on Xarelto 10 mg daily for DVT prophylaxis -will see how she does with PT and OT and decide if she needs acute rehab versus SNF versus home health (2) Benign essential HTN: Code(s): I10 - Essential (primary) hypertension Status: Chronic Assessment and Plan: Blood pressure has been running low but patient has been asymptomatic -Ctoninue lisinopril, hydrochlorothiazide and atenolol (3) Toe pain, right: Code(s): M79.674 - Pain in right toe(s) Status: Acute Assessment and Plan: No complaints today -x-ray negative for fracture Additional Plan Subjective Date/time seen: 07/04/20 13:34 Interval history: Pt is a 55 year old here for hip fracture. Patient was seen today and states she is doing well. She had her pain under control and she has been sitting in the chair. Pt denies nausea, vomiting, fevers, chills, constipation, diarrhea, chest pain, sob, lightheadedness, dizziness or abdominal pain. She has not had a bowel movement yet. She has a hx of elevated liver enzymes and says it runs in her family as her dad and brother have it too. No hx of hepatitis. She does not drink etoh Exam Narrative: Exam Narrative: General: Well developed well nourished patient in NAD HEENT: normocephalic Neck: supple, no pain to the cervical spine Neuro: Alert and oriented x4 CV:RRR Resp:CTA Abd: Soft, non distended. No pain to palpation. Positive bowel sounds Extremities: Right hip bandage intact without erythema, swelling or discharge. Patient is slightly weak on plantar flexion but states this is chronic. Objective Data Vital Signs Vital Signs: Vital Signs - 24 hr 07/03/20 14:00 07/03/20 18:00 07/03/20 20:00 Temperature 98.7 F 99.7 F H 97.8 F Pulse Rate 82 103 H 107 H Respiratory Rate 16 12 20 Blood Pressure 101/56 L 104/66 105/70 Pulse Oximetry 93 90 94 07/04/20 02:00 07/04/20 05:15 07/04/20 08:39 Temperature 97.1 F L 96.9 F L Pulse Rate 79 95 Respiratory Rate 20 20 Blood Pressure 102/68 132/82 128/80 Pulse Oximetry 94 97 07/04/20 10:00 07/04/20 10:15 Temperature 98.1 F Pulse Rate 96 100 Respiratory Rate 16 Blood Pressure 131/75 Pulse Oximetry 95 Intake/Output Intake/Output: Intake & Output 07/01/20 07/02/20 07/03/20 07/04/20 23:59 23:59 23:59 23:59 Intake Total 500 850 980 710 Output Total 2325 550 300 Balance 500 -1475 430 410 Meds/Results Medications: Active Medications Generic Name Dose Route Start Last Admin Trade Name Freq PRN Reason Stop Dose Admin Acetaminophen 650 mg 07/02/20 15:13 Acetaminophen 325 Mg Tablet PO Q6H PRN Mild Pain (1-3) or Fever Hydrocodone Bitart/Acetaminophen 1 tab 07/02/20 15:13 07/04/20 13:02 Hydrocodone/Acetaminophen (*Crx) 5-325 Mg Tablet PO 1 tab Q3H PRN Administration Pain Rated 4-6 Hydrocodone Bitart/Acetaminophen 2 tab 07/02/20 15:13 07/03/20 03:33 Hydrocodone/Acetaminophen (*Crx) 5-325 Mg Tablet PO 2 tab Q6H PRN Administration Pain Rated 7-10 Al Hydrox/Mg Hydrox/Simethicone 30 ml 07/02/20 15:13 Mag Hydrox/Al Hydrox/Simeth 30 Ml Udc PO Q6H PRN Indigestion Atenolol 100 mg 07/02/20 09:00 07/04/20 10:15 Atenolol 50 Mg Tablet PO 100 mg DAILY ESTELLE Administration Docusate Sodium 100 mg 07/02/20 17:00 07/04/20 08:34 Docusate Sodium 100 Mg Capsule PO 100 mg BID ESTELLE Administration Hydrochlorothiazide 12.5 mg 07/02/20 09:00 07/04/20 10:15 Hydrochlorothiazide 12.5 Mg Capsule PO 1
[2020-07-05 05:40] VITALS: BP 105/61; PULSE 81; RESP 18; TEMP 36.6; O2SAT 98
[2020-07-05 05:47] LABS: Hematocrit 35.3 % (37.0-47.0); Hemoglobin 11.3 g/dL (12.0-15.0); Mean Corpuscular Hemoglobin 28.5 pg (26-34); Mean Corpuscular Volume 88.9 fl (80-100); Mean Platelet Volume 10.9 fl (7.4-10.4); Platelet Count Result 165 k/mm3 (150-375); Red Blood Count 3.97 M/mm3 (4.2-5.4); White Blood Count 11.4 K/mm3 (4.5-10.0)
[2020-07-05 06:09] LABS: Alanine Aminotransferase 33 U/L (4-35); Albumin Level 3.3 g/dL (3.5-5.1); Alkaline Phosphatase 42 U/L (38-126); Anion Gap 3 mmol/L (8-16); Aspartate Amino Transferase 46 U/L (14-36); Bilirubin,Total 1.4 mg/dL (0.2-1.3); Blood Urea Nitrogen 14 mg/dL (7-17); Calcium 8.6 mg/dL (8.4-10.2); Carbon Dioxide 33 mmol/L (22-30); Chloride 104 mmol/L (98-107); Estimated CRCL calculation 72 ml/min; Estimated Glomerular Filt Rate > 60; Glucose 119 mg/dL (65-105); Potassium 3.8 mmol/L (3.4-5.0); Sodium 140 mmol/L (137-145)
[2020-07-05 06:44] LABS: Hepatitis B Surface Antigen Negative (Negative)
[2020-07-05 06:49] LABS: HAV RESULT Negative (Negative); Hepatitis B Core IgM Result Negative (Negative)
[2020-07-05 07:01] LABS: Hepatitis C Virus Antibody Negative (Negative)
[2020-07-05 08:31] VITALS: PULSE 100
[2020-07-05] MEDS: atenoloL 50 MG TABLET 100 MG PO (08:31)
[2020-07-05] MEDS: HYDROcodone/acetaminophen (*CRX) 5-325 MG TABLET 1 TAB PO (08:32)
[2020-07-05] MEDS: lisinopriL 20 MG TABLET 40 MG PO (08:32)
[2020-07-05] MEDS: DOCUSATE SODIUM 100 MG CAPSULE PO (08:32)
[2020-07-05] MEDS: hydroCHLOROthiazide 12.5 MG CAPSULE PO (08:32)
[2020-07-05] MEDS: RIVAROXABAN 10 MG TABLET PO (08:32)
[2020-07-05 08:57] VITALS: BP 108/82; PULSE 100; RESP 18; TEMP 37.2; O2SAT 97
--- NOTE | 2020-07-05 10:27 | PM.DS ---
DS: Admitting Diagnosis Admitting Diagnosis Admitting Diagnosis: Right hip fracture DS: Discharge Diagnosis Discharge Diagnosis (1) Displaced fracture of right femoral neck: Code(s): S72.001A - Fracture of unspecified part of neck of right femur, initial encounter for closed fracture Status: Acute Assessment and Plan: Status post right hemiarthroplasty 07/02/[address] church -patient is doing well with physical therapy and able to do stairs -pt has a one floor house and only a few steps getting in and lives with someone who can help her -continue 13 more days of Xarelto 10 mg daily for DVT prophylaxis then aspirin thereafter -follow up with Dr. Church -discharge with home health (2) Benign essential HTN: Code(s): I10 - Essential (primary) hypertension Status: Chronic Assessment and Plan: Last blood pressure 108/82 -Ctoninue lisinopril, hydrochlorothiazide and atenolol (3) Toe pain, right: Code(s): M79.674 - Pain in right toe(s) Status: Acute Assessment and Plan: No complaints today -x-ray negative for fracture (4) Abnormal finding on urinalysis: Code(s): R82.90 - Unspecified abnormal findings in urine Status: Acute Assessment and Plan: UA somewhat suspicious for UTI and patient had leukocytosis. Ceftriaxone was started during hospitalization and she will be discharged on Keflex. Her urine culture will be monitored and medications adjusted as appropriate DS: Summary Hospital Course Hospital Course: Patient is a 55-year-old female who presented emergency room for fall after she slipped and fell on feet urgent with immediate pain to her right hip. Vitals in the ER were 36.6? C, pulse 97, respiratory rate 19, blood pressure 124/79, pulse ox 97 on room air. Hip x-ray showed right subcapital femoral neck fracture. Chest x-ray was negative.Service and underwent a right hemiarthroplasty 07/02/20 and did well with this. She initially was going to SNF but while waiting for insurance authorization she did well with physical therapy and is going to discharge on home health. She is going to continue Xarelto for 13 more days for DVT prophylaxis and then switch to aspirin. Her home medications were not changed. She had a leukocytosis while hospitalized and was likely due to inflammatory response but her UA was slightly abnormal and was given antibiotics at discharge and I will monitor her culture and adjust as necessary. The day of discharge she did well with physical therapy and was using the stairs. She understands that she needs to get a walker and is going to do her exercises at home. She was educated about the worrisome signs and symptoms to come back to emergency room for and was discharged in stable condition. She is able to afford the Xarelto at 25 dollars. Status at Discharge Functional status at discharge: uses cane/walker Overall status at discharge: patient is progressing back to baseline Time Spent with Patient Time attestation: Total time spent providing and/or coordinating discharge services:34 min Time spent: Greater than 30 minutes Exam Narrative: Exam Narrative: General: Well developed well nourished patient in NAD HEENT: normocephalic Neck: supple, no pain to the cervical spine Neuro: Alert and oriented x4 CV:RRR Resp:CTA Abd: Soft, non distended. No pain to palpation. Positive bowel sounds Extremities: Right hip bandage intact without erythema, swelling or discharge. Patient is slightly weak on plantar flexion but states this is chronic. DS: Data Data Completed and Pending Pending studies at discharge: Pending at discharge 07/02/20 12:34 Surgical [PTH] Routine Labs on day of discharge: Labs from last 24 hours 07/05/20 07/05/20 07/05/20 05:30 05:29 05:29 WBC 11.4 H RBC 3.97 L Hgb 11.3 L Hct 35.3 L MCV 88.9 MCH 28.5 MCHC 32.0 RDW 15.0 H Plt Count 165 MPV 10.9 H So
--- NOTE | 2020-07-05 11:04 | PC.NURSE ---
On 07/05/20, the student, [ Sulaiman Smith], provided care and completed [employer] documentation on this patient. I have reviewed the student's documentation and agree with the findings.
--- NOTE | 2020-07-05 12:10 | PCOTNOTE ---
Attempted to see Patient for OT A.M. treatment session. Patient declined therapy at this time, stating she is waiting for her ride to get here and is being discharged. Patient was asked if she had any questions. Patient verbalized she feels comfortable and is ready to go home.
--- NOTE | 2020-07-06 09:28 | PC.NURSE ---
urine cx is negative. JOSE Ojeda aware.
== END 2020-07-05 12:20 | disposition home health service (06) | DRG 522 ==
LOC: ANHED 14:03 → ANH2MED 18:31
PROVIDERS: Family Medicine; Orthopaedic Surgery; Physician Assistant; Admitting Provider Internal Medicine; Emergency Provider Emergency Medicine; PCP Family Medicine; Visit Provider Physician Assistant
PROC: 0SRR0JA Replacement of Right Hip Joint, Femoral Surface with Synthetic Substitute, Uncemented, Open Approach (ICD-10-PCS; CPT 27125; principal; 2020-07-02 12:00)
DX: S72.011A Unspecified intracapsular fracture of right femur, initial encounter for closed fracture (principal); M79.674 Pain in right toe(s); W18.39XA Other fall on same level, initial encounter; Z20.822 Contact with and (suspected) exposure to COVID-19; I10 Essential (primary) hypertension; G80.9 Cerebral palsy, unspecified; K76.0 Fatty (change of) liver, not elsewhere classified; D72.829 Elevated white blood cell count, unspecified; E66.9 Obesity, unspecified; Z68.34 Body mass index [BMI] 34.0-34.9, adult; Z87.891 Personal history of nicotine dependence
CPT/HCPCS: 36415; 71045; 73502; 73552; 73620; 80048; 80074; 80076; 81001; 85025; 85027; 87086; 88305; 88307; 88311; 88342; 88360; 93005; 96374; 97110; 97116; 97161; 97165; 97530; 97535; 99285; A9270; C1713; C1776; C9803; J0690; J0696; J1100; J1170; J1885; J2250; J2270; J2370; J2405; J2704; J2710; J3010; J7030; J7120; U0003; U0005

== ENCOUNTER 2020-10-16 07:30 | Outpatient (RCR) | payer BC, SELFPAY ==
--- NOTE | 2020-09-12 09:18 | PTOPEVAL ---
Thank you for referring Britney Overton to [facility] The patient is scheduled to be seen for therapy? 2 x/week for 6-8 weeks. Please review, sign, date and return this plan of care YOVANI. I agree with and certify that the following plan of care is medically necessary. 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 She is following post-op hip precautions. She lives with her with 5 steps to enter. She received AFO 08/18/20. She has had weakness of right UE/LE since . Subjective Information She slipped on a wet floor Query Text:As Reported By Patient/ causing the fracture. She was Family using a walker to assist with mobility. She transitioned herself to a cane on 08/31/20. She received home health services for 4 wk after surgery. She is performing her HEP. 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 Previous Treatments Previous Treatments For This Problem home health Pain Assessment Self Report Pain Assessment Right Hip(s) Reported Pain Level 0 Pain Description Aching Pain Frequency Acute,Intermittent Lowest Pain Intensity 0 Greatest Pain Intensity 3 Pain Aggravating Factors Sitting Lower Extremity Range of Motion General Lower Extremity Range of Motion Reason Not Measured Surgery Precautions Limitations Muscle Tone,Soft Tissue Restriction Gross Lower Extremity Range of Motion Passive ROM right hip flex: 90 Comments dg, abd : 30 deg, ankle DF: - 5 deg Lower Extremity Muscle Strength Testing Hip Strength Right Hip Flexion Strength 4- Good - Hip Extension Strength 3+ Fair + Hip Abduction Strength 2 Poor Hip Adduction Strength 2 Poor Hip Strength Comments hip ext measured supine Left Hip Flexion Strength 4+ Good + Hip Exte
--- NOTE | 2020-10-16 08:19 | PTOPEVAL ---
Thank you for referring Britney Overton to [facility].? Britney has received 11 therapy visits to address muscle weakness and impaired mobility as a result of hip surgery. She demonstrates improved LE strength, improved functional mobility and indep with her HEP. She has reached maximal potential with skilled therapy services at this time. Will DC skilled therapy services at this time with goals partially met. Please review, sign, date and return this discharge summary YOVANI. I agree with and certify that the following plan of care is medically necessary. 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 She is following post-op hip precautions. She lives with her with 5 steps to enter. She received AFO 08/18/20. She has had weakness of right UE/LE since . Subjective Information She denies any pain in right Query Text:As Reported By Patient/ knee or hip. She reports Family continued difficulty with negotiating steps. She is not using a device at home, but will use the cane in the community. She is performing her HEP with continued weakness of right LE. She has difficulty with hip abduction motion. 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 Pain Assessment Right Knee(s) Reported Pain Level 0 Lowest Pain Intensity 0 Right Hip(s) Reported Pain Level 1 Lowest Pain Intensity 0 Greatest Pain Intensity 1 Lower Extremity Muscle Strength Testing Hip Strength Right Hip Flexion Strength 4+ Good + Hip Extension Strength 4 Good Hip Abduction Strength 3 Fair Hip Adduction Strength 3 Fair Left Hip Flexion Strength 4+ Good + Hip Extension Strength 4 Good Hip Abduction Strength 3 Fair Hip Adduction Strength 3 Fair Knee Strength Right Knee Flexion Strength 4+ Good + Knee Extension Strength 5
== END 2020-10-16 11:45 | disposition home or self-care (01) ==
LOC: ANHPT 07:30
PROVIDERS: PCP Family Medicine; Visit Provider Orthopaedic Surgery
DX: S72.001D Fracture of unspecified part of neck of right femur, subsequent encounter for closed fracture with routine healing (principal)
CPT/HCPCS: 97110; 97112; 97162

== ENCOUNTER 2021-04-14 14:23 | Emergency (ER) | payer BC, SELFPAY ==
[2021-04-14 14:33] VITALS: BP 127/65; PULSE 75; RESP 18; TEMP 37.3; O2SAT 97
--- NOTE | 2021-04-14 14:36 | ED.URI ---
HPI - URI/Sore Throat General Chief Complaint: Upper Respiratory Infection Stated Complaint: congestion Time Seen by Provider: 04/14/21 14:36 Source: patient Mode of arrival: ambulatory Limitations: no limitations History of Present Illness HPI Narrative: Britney Overton is a 56 yo female with a PMH of HTN who [facility] with complaints of sinus congestion and not feeling very well since last Thursday, has congestion, cough, occasionally has blown out green mucus, she had some bloody nasal drainage also but has been using Afrin. states she has not felt too bad but coughs a lot Related Data Allergies Allergy/AdvReac Type Severity Reaction Status Date / Time No Known Allergies Allergy Verified 04/14/21 14:33 Review of Systems Review of Systems: CONSTITUTIONAL: Denies fever, chills, sweats. EYES: Denies visual changes, redness, discharge. ENT: Has rhinorrhea, has congestion, sore throat, otalgia. CARDIOVASCULAR: Denies chest pain, palpitations, edema. RESPIRATORY: Denies dyspnea, wheezing, has cough GASTROINTESTINAL: Denies abdominal pain, nausea, vomiting, diarrhea. GENITOURINARY: Denies dysuria, hematuria, abnormal discharge SKIN: Denies rash or itching. NEUROLOGIC: Denies numbness, or focal weakness. PSYCHIATRIC: Denies anxiety or depression. [facility] Past Medical History Medical History Benign essential HTN BMI 31.0-31.9,adult Chronic focal neurological deficit Fatty liver Hx of smoking Postmenopausal bleeding Seizure disorder Surgical History Surgical History Displaced fracture of right femoral neck Right bipolar replacement July 02, 2020 Hx of dilation and curettage Family History Family History Mother Hypertension Coronary artery disease Alzheimer's dementia Sibling Acute myocardial infarction Hypertension Fatty liver Father Hypertension Fatty liver Alzheimer's dementia Skin cancer Social History Social History Social History: Smoking packs per day: 1 Smoking cigarettes per day: 20.0 Years smoked: 1 Smoking pack-years: 1.00 Tobacco type: cigarettes Second hand tobacco smoke exposure: No Alcohol intake: current Substance use: never Substance use type: does not use Other substance usage details: drinks alcohol about once a year Gender identity (if verbalized by the patient): Female Sexual Orientation (if Verbalized by the Patient): Straight or Heterosexual Spiritual care concerns: No Comments At time of signature, I agree with nursing past medical, surgical, social and family history. There is no relevant family history pertinent to the presenting complaint. Exam Narrative: GENERAL: This is a well-nourished, well-developed patient, in moderate distress. HEAD: normocephalic, atraumatic. EYES: Sclera clear/white. Vision is grossly intact. EARS: External ears normal, auditory canals clear and without drainage, TMs normal without perforation. Hearing grossly intact. NOSE: External nose normal with nasal discharge, nares with redness, has rhinorrhea. THROAT: Mucous membranes moist, posterior pharynx mild erythema NECK: Neck supple, non-tender CARDIOVASCULAR: Regular rate and rhythm without murmurs, gallops, or rubs. RESPIRATORY: Clear to auscultation. Breath sounds equal bilaterally. No wheezes, rales, or rhonchi. GASTROINTESTINAL: Abdomen soft, SKIN: warm, intact with no suspicious lesions or rash, good texture and turgor. NEURO: awake, alert, and oriented to person, place and time. There were no obvious focal neurologic abnormalities. Steady gait EXTREMITIES: Normal range of motion. BACK: Nontender without deformity Course Course Emergency Course: Patient comes here with sinus congestion that started last Tue
[2021-04-14 14:54] VITALS: BP 127/65; PULSE 75; RESP 18; TEMP 37.3; O2SAT 97
== END 2021-04-14 15:07 | disposition home or self-care (01) ==
PROVIDERS: Emergency Provider Nurse Practitioner; PCP Family Medicine
DX: J01.10 Acute frontal sinusitis, unspecified (principal); I10 Essential (primary) hypertension; K76.0 Fatty (change of) liver, not elsewhere classified; Z87.891 Personal history of nicotine dependence
CPT/HCPCS: 99213; G0463

== ENCOUNTER 2021-05-16 16:16 | Outpatient (CLI) | payer BC, SELFPAY ==
--- NOTE | ~2021-05-16 | MM_ITS ---
EXAMINATION: MM screening aris BI w zain HISTORY: Screening mammogram TECHNIQUE: Craniocaudal and mediolateral oblique 3-D tomosynthesis images were obtained and synthetic 2-D images were generated. CAD analysis was submitted and interpreted. COMPARISON: 11/11/2014 BREAST PARENCHYMAL COMPOSITION: There are scattered areas of fibroglandular density. FINDINGS: There is no evidence of suspicious mass, calcification, or architectural distortion to sugg est malignancy in either breast. There has been no suspicious interval change. IMPRESSION: 1. No mammographic evidence of malignancy. 2. Recommend routine screening mammography in one year. BI-RADS Category 1: Negative Reviewed, dictated and finalized at location A. 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
== END 2021-05-16 16:17 | disposition home or self-care (01) ==
LOC: ANHIMG 16:18
PROVIDERS: PCP Family Medicine; Visit Provider Family Medicine
DX: Z12.31 Encounter for screening mammogram for malignant neoplasm of breast (principal)
CPT/HCPCS: 77063; 77067

== ENCOUNTER 2022-01-21 09:55 | Outpatient (CLI) | payer BC, SELFPAY ==
[2022-01-21 10:32] LABS: Alanine Aminotransferase 48 U/L (6-35); Albumin Level 4.5 g/dL (3.5-5.1); Alkaline Phosphatase 73 U/L (38-126); Anion Gap 9 mmol/L (8-16); Aspartate Amino Transferase 38 U/L (14-36); Bilirubin,Total 0.8 mg/dL (0.2-1.3); Blood Urea Nitrogen 16 mg/dL (7-17); Calcium 9.9 mg/dL (8.4-10.2); Carbon Dioxide 27 mmol/L (22-30); Chloride 104 mmol/L (98-107); Cholesterol 175 mg/dL (0-200); Estimated Glomerular Filt Rate > 60; Glucose 114 mg/dL (65-110); HDL Direct 39 mg/dL; Potassium 4.4 mmol/L (3.4-5.0); Sodium 140 mmol/L (137-145); Triglycerides 153 mg/dL (<150)
[2022-01-21 10:43] LABS: LDL Cholesterol Direct 93 mg/dL
[2022-01-21 10:51] LABS: Vitamin D 25 Hydroxy 25.4 ng/mL
== END 2022-01-21 09:56 | disposition home or self-care (01) ==
LOC: ANHLAB 09:57
PROVIDERS: PCP Family Medicine; Visit Provider Nurse Practitioner Family
DX: Z13.1 Encounter for screening for diabetes mellitus (principal); K76.0 Fatty (change of) liver, not elsewhere classified; I10 Essential (primary) hypertension; Z13.29 Encounter for screening for other suspected endocrine disorder; Z13.220 Encounter for screening for lipoid disorders; E55.9 Vitamin D deficiency, unspecified
CPT/HCPCS: 36415; 80053; 80061; 82306; 84443

== ENCOUNTER 2023-09-12 10:16 | Outpatient (CLI) | payer BC, SELFPAY ==
[2023-09-12 10:32] LABS: Hematocrit 44.5 % (37.0-47.0); Mean Corpuscular HGB Conc 31.5 g/dl (32-36); Mean Corpuscular Hemoglobin 28.5 pg (26-34); Mean Corpuscular Volume 90.4 fl (80-100); Mean Platelet Volume 10.3 fl (7.4-10.4); Platelet Count Result 205 k/mm3 (150-375); Red Blood Count 4.92 M/mm3 (4.2-5.4); Red Cell Distribution Width 14.8 % (11.5-14.5); White Blood Count 7.9 K/mm3 (4.5-10.0)
[2023-09-12 10:44] LABS: Alanine Aminotransferase 52 U/L (6-35); Albumin Level 4.3 g/dL (3.5-5.1); Alkaline Phosphatase 76 U/L (38-126); Anion Gap 6 mmol/L (4-12); Aspartate Amino Transferase 48 U/L (14-36); Bilirubin,Total 0.9 mg/dL (0.2-1.3); Blood Urea Nitrogen 16 mg/dL (7-17); Carbon Dioxide 29 mmol/L (22-30); Chloride 104 mmol/L (98-107); Cholesterol 163 mg/dL (0-200); Estimated Glomerular Filt Rate > 60; Glucose 125 mg/dL (65-110); HDL Direct 38 mg/dL; Potassium 4.3 mmol/L (3.4-5.0); Sodium 139 mmol/L (137-145); Triglycerides 125 mg/dL (<150)
[2023-09-12 10:55] LABS: LDL Cholesterol Direct 99 mg/dL
[2023-09-12 11:13] LABS: Thyroid Stimulating Hormone 0.863 uIU/mL (0.465-4.680)
== END 2023-09-12 10:17 | disposition home or self-care (01) ==
LOC: ANHLAB 10:17
PROVIDERS: PCP Family Medicine; Visit Provider Physician Assistant Medical
DX: I10 Essential (primary) hypertension (principal); Z13.29 Encounter for screening for other suspected endocrine disorder
CPT/HCPCS: 36415; 80053; 80061; 84443; 85027

== ENCOUNTER 2023-11-23 08:28 | Outpatient (CLI) | payer BC, SELFPAY ==
--- NOTE | ~2023-11-23 | MM_ITS ---
EXAMINATION: MM screening aris BI w zain HISTORY: Screening TECHNIQUE: Craniocaudal and mediolateral oblique 3-D tomosynthesis images were obtained and synthetic 2-D images were generated. CAD analysis was submitted and interpreted. COMPARISON: Comparison to multiple prior studies sequentially, with oldest reviewed study dated 11/11. BREAST PARENCHYMAL COMPOSITION: Not dense: There are scattered areas of fibroglandular density. FINDINGS: There is no evidence of suspicious mass, calcification, or architectural distortion to sugg est malignancy in either breast. There has been no suspicious interval change. IMPRESSION: 1. No mammographic evidence of malignancy. 2. Recommend routine screening mammography in one year. BI-RADS Category 1: Negative Reviewed, dictated and finalized at location B.
== END 2023-11-23 08:29 | disposition home or self-care (01) ==
LOC: ANHIMG 08:30
PROVIDERS: PCP Family Medicine; Visit Provider Physician Assistant Medical
DX: Z12.31 Encounter for screening mammogram for malignant neoplasm of breast (principal)
CPT/HCPCS: 77063; 77067

== ENCOUNTER 2024-08-19 10:13 | Emergency (ER) | payer BC, SELFPAY ==
--- NOTE | ~2024-08-19 | US_ITS ---
EXAMINATION: US venous doppler [facility] DATE: 08/19/2024 12:23 INDICATION: Left lower limb pain TECHNIQUE: Grayscale ultrasound images without and with compression and Doppler ultrasound images of the left lower extremity veins were obtained. COMPARISON: None. FINDINGS: The visualized portions of left common femoral vein, profunda (deep) femoral vein, femoral vein, popl iteal vein, peroneal veins, posterior tibial veins, gastrocnemius vein and greater saphenous vein out flow are patent. IMPRESSION: 1. No deep venous thrombosis in the left lower limb. Reviewed, dictated and finalized at location A.
[2024-08-19 10:24] VITALS: BP 138/77; PULSE 63; RESP 16; TEMP 37.1; O2SAT 96
--- OUTSIDE RECORDS SUMMARY | 2024-08-19 10:37 | XMS_ITS | Continuity of Care Document ---
[facility] Organization [facility] Address [address] [place] [address] Phone Care Team Providers Care Information Tech Name Role Phone Joellen Simpson MD Unavailable Unavailabl e Allergies, Adverse Reactions, Alerts Substance Reaction Status Criticality No Known Drug Allergies Other Active No I nformation Medications Medication Instructions Dosage Effective Dates (start - stop) Status Comments ALPRAZOLAM 0.5 MG TABLET 1 at bedtime an d one prn - Active BENAZEPRIL HCL 40 MG TABLET 1 QD-daily - Active TENORMIN 100 MG TABLET 1 QD-daily - Ac tive LAZARO 180 MG TABLET 1 QD-daily - Act bridget HYDROCHLOROTHIAZIDE 25 MG TAB 1 QAM - Active Celexa 20 mg Tab take 1 tablet (20MG) by oral route every day 20 MG - Active NASONEX 50 MCG NASAL SPRAY 2 QD-daily - Active Advance Directives Directive Yes / No Effective Date File Name No Information Encounters Encounter Description Practice Location Reason(s) For Visit Diagnoses Date Provider Providers Copied on Encounter [facility], [address], [place], [place], [id number], [place] tel:[phone] [place] No Information Tatiana Cuenca. [address] [place], [place], [id number]. tel:[phone] [facility], [address], [place], [place], [address], [place] tel:[phone] [place] No Information Tatiana Cuenca. [address] [place], [place], [address]. tel:[phone] [facility], [address], [place], [place], [address], [place] tel:[phone] [place] No Information Alessandra Vogt [address] [place], [place], [id number], [place]. tel:[phone] [facility], [address], [place], [place], [address], [place] tel:[phone] [place] No Information Alessandra Cook. [address] [place], [place], [address], [place]. tel:[phone] [facility], [address], [place], [place], [address], tel:[phone] [place] Tatiana Giles [address] [place] [address], [id number]. tel:[phone] Referring Provider: Joellen Simpson, [place], [address] . tel:[phone] [facility], [address], [place], [place], [address], tel:[phone] [place] No Information Tatiana Cuenca. [address] [place], [address]. tel:[phone] [facility], [address], [place], [place], [address], [place] tel:[phone] [place] ANXIETY STATE NOS Conversion Doctor. [address], [place], [address], [place]. [facility], [address], [place], [place], [address], [place] tel:[phone] [place] HYPERTENSION NOSALLERGIC RHINITIS NOS Tatiana Cuenca. [address] [place], [place], [address]. tel:[phone] [facility], [address], [place], [place], [address], [place] tel:[phone] [place] ROUTINE MEDICAL EXAM Tatiana Cuenca. [address] [place], [address]. tel:[phone] [facility], [address], [place], [place], [address], tel:[phone] [place] No Information Tatiana Monoryh. [address] [place], [address]. tel:[phone] [facility], [address], [place], [place], [address], tel:[phone] [place] GYNECOLOGIC EXAMINATION Tatiana Cuenca. [address] [place], [place], [address]. tel:[phone] Family History Family Member Type Diagnosis Age At Onset No Information Payers Payer name Insurance type Covered alliance party ID Authorsoniaa lily(s) No Information Social History Type Description Quantity Date Captured Comments Alcohol Use Details Unknown Caffeine Use Details Unknown Tobacco Use Status No Information Smoking Status No Information Sex Female Chief Complaint And Reason For Visit No Information Reason For Referral Reason For Referral No Information History Of Present Illness Encounter Date Complaint History Of Prese nt Illness No Information Functional Status Date Functional Assessmen t No Information Instructions Date Instruction Additional Infor mation No Information Assessments Type Assessment Date No Information Patient Care Teams Name Effective Dates (start - stop) Status Members No Information
--- OUTSIDE RECORDS SUMMARY | 2024-08-19 11:34 | XMS_ITS | Continuity of Care Document ---
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 [address] [place], [place], [address]. tel:[phone] [facility], [address], [place], [place], [address], [place] tel:[phone] [place] No Information Tatiana Cuenca. [address] [place], [place], [address]. tel:[phone] [facility], [address], [place], [place], [address], [place] tel:[phone] [place] No Information Alessandra Vogt [address] [place], [place], [address], [place]. tel:[phone] [facility], [address], [place], [place], [address], [place] tel:[phone] [place] No Information Alessandra Cook. [address] [place], [place], [address], [place]. tel:[phone] [facility], [address], [place], [place], [address], tel:[phone] [place] Tatiana Giles [address] [place] [address], [id number]. tel:[phone] Referring Provider: Joellen Simpson, [place], [address] . tel:[phone] [facility], [address], [place], [place], [address], tel:[phone] [place] No Information Tatiana Cuenca. [address] [place], [place], [address]. tel:[phone] [facility], [address], [place], [place], [address], [place] tel:[phone] [place] ANXIETY STATE NOS Conversion Doctor. [address], [place], [address], [place]. [facility], [address], [place], [place], [address], [place] tel:[phone] [place] HYPERTENSION NOSALLERGIC RHINITIS NOS Tatiana Cuenca. [address] [place], [place], [address]. tel:[phone] [facility], [address], [place], [place], [address], [place] tel:[phone] [place] ROUTINE MEDICAL EXAM Tatiana Cuenca. [address] [place], [place], [address]. tel:[phone] [facility], [address], [place], [place], [address], tel:[phone] [place] No Information aTtiana Monroyh. [address] [place], [place], [address]. tel:[phone] [facility], [address], [place], [place], [address], tel:[phone] [place] GYNECOLOGIC EXAMINATION Tatiana Cuenca. [address] [place], [place], [address]. tel:[phone] Family History Family Member Type Diagnosis Age At Onset No Information Payers Payer name Insurance type Covered republican ID Authorsoniaa lily(s) No Information Social History [...]
--- NOTE | 2024-08-19 12:03 | ED_ITS ---
HPI - General Adult General Chief complaint: Extremity Problem,Nontraumatic Stated complaint: L leg pain after possible injury Time Seen by Provider: 08/19/24 10:17 History of Present Illness HPI narrative: 59-year-old female presenting to the emergency department for evaluation for left leg pain. Patient states that last week she struck her left barone on a table and then over last few days started developing some left hip pain that radiates down her left leg. Related Data Allergies Allergy/AdvReac Type Severity Reaction Status Date / Time No Known Allergies Allergy Verified 08/19/24 07:49 Review of Systems Review of Systems: All systems reviewed & are unremarkable except as noted in HPI and below PMFSH Past Medical History Medical History BMI 33.0-33.9,adult History of seizure Screening for malignant neoplasm of colon Screening for thyroid disorder Encounter for screening for lipid disorder Screening for diabetes mellitus Intermittent chest pain COVID-19 Bronchitis Screening for colon cancer Screening for osteoporosis Screening for breast cancer Screening for hypothyroidism Chronic focal neurological deficit Postmenopausal Breast cancer screening Fatty liver Hx of smoking Benign essential HTN Postmenopausal bleeding Seizure disorder Surgical History Surgical History Displaced fracture of right femoral neck Right bipolar replacement July 02, 2020 Hx of dilation and curettage Family History Family History Mother Hypertension Coronary artery disease Alzheimer's dementia Sibling Acute myocardial infarction Hypertension Fatty liver Father Hypertension Fatty liver Alzheimer's dementia Skin cancer Social History Social History Social History: Smoking packs per day: 1 Smoking cigarettes per day: 20.0 Years smoked: 1 Smoking pack-years: 1.00 Smoking status: Former smoker Tobacco type: cigarettes Second hand tobacco smoke exposure: No Alcohol intake: never Substance use: never Substance use type: does not use Other substance usage details: drinks alcohol about once a year Do You Feel Safe in your Home?: Yes Lack of Transportation: No Lack of Food: Never True Current Housing: I Have Housing Concerned About Future Housing: No Difficulty Paying Gas/Electric Bills: No Difficulty Paying for Meds: No Currently Unemployed: No Education: Bachelor's Degree Difficulty w/ Childcare or Family Care: No Living arrangements: with roommate(s) Occupation/Education: occupation 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 HEAD: normocephalic, atraumatic. EYES: PERRLA/EOMI, conjunctivae clear. NOSE: Normal no drainage EARS:TMS clear with good light reflex. THROAT: Pharynx clear, no exudate. NECK: Supple. No adenopathy, no masses. RESPIRATORY: Airway patent, respirations nonlabored. Clear to auscultation bilaterally, no rales, rhonchi, wheezing. CARDIOVASCULAR: Regular rate and rhythm without murmurs rubs or gallops. ABDOMINAL: Soft, nontender, nondistended, normal bowel sounds MUSCULOSKELETAL: Left leg is larger than the right at baseline. Strong distal pulses. Both legs are warm to touch. Positive straight leg on left. Left buttock tenderness without rash or ecchymosis NEURO: Alert. Cranial nerves II through XII intact. Good gait. Good coordination SKIN: Warm, dry. Normal Color Course Vital Signs Vital signs: Vital Signs Temperature 98.8 F 08/19/24 10:24 Pulse Rate 63 08/19/24 10:24 Respiratory Rate 16 08/19/24 10:24 Blood Pressure 138/77 08/19/24 10:24 Pulse Oximetry 96 08/19/24 10:24 Oxygen Delivery Room Air 08/19/24 10:24 Temperature 98.8 F 08/19/24 10:24 Pulse Rate 62 08/19/24 13:10 Respiratory Rate 16 08/19/24 13:10 Blood Pressure 95/63 L 08/19/24 13:10 Pulse Oximetry 97 08/19/24 13:10 Oxygen Delivery Room Air 08/19/24 10:24 Medical Decision Making MDM Narrative Medical decision making narrative: 5-year-old female presents emergency department for evaluation for left leg pain. Ultrasound was negative for DVT. Patient has strong distal pulses. Patient does complain of left hip pain that does radiate down the leg consistent with sciatica. Suspect patient had a left lower leg injury resulting any change in her gait and bleeding to subsequent sciatica. Patient states she does have history of mild cerebral palsy and does have some deficit to her right leg and fevers her left leg to begin with. Patient is not diabetic. Patient will be started on a Medrol Dosepak and Flexeril for suspected sciatica. Differential Diagnosis Differential Diagnosis: Contusion, ecchymosis, sciatica Vital Signs Vital Signs: Vital Signs Temperature 98.8 F 08/19/24 10:24 Pulse Rate 63 08/19/24 10:24 Respiratory Rate 16 08/19/24 10:24 Blood Pressure 138/77 08/19/24 10:24 Pulse Oximetry 96 08/19/24 10:24 Oxygen Delivery Room Air 08/19/24 10:24 Temperature 98.8 F 08/19/24 10:24 Pulse Rate 62 08/19/24 13:10 Respiratory Rate 16 08/19/24 13:10 Blood Pressure 95/63 L 08/19/24 13:10 Pulse Oximetry 97 08/19/24 13:10 Oxygen Delivery Room Air 08/19/24 10:24 Imaging Data Radiologist's impression: Impressions Venous Doppler Study 08/19/24 12:24 IMPRESSION: 1. No deep venous thrombosis in the left lower limb. Discharge Plan Discharge Clinical Impression: Acute leg pain, Sciatica Patient Disposition: Home, Self-Care Condition: Stable Instructions: Antibiotic Form, Sciatica (ED) Additional Instructions: Tylenol and ibuprofen for pain control. Medrol Dosepak as directed until completed. Flexeril for muscle spasm. Have close follow-up with your primary care physician. Patient Language: [place] Prescriptions: New cyclobenzaprine 10 mg tablet 10 mg PO BID PRN (Reason: muscle spasm) Qty: 14 0RF methylprednisolone [Medrol (Jose)] 4 mg tablets,dose pack See Rx Instructions .ROUTE .COMPLEX Qty: 21 0RF Rx Instructions: for 6 days No Action hydrochlorothiazide 12.5 mg tablet 12.5 mg PO DAILY Qty: 30 6RF benazepril 40 mg tablet 40 mg PO DAILY Qty: 30 6RF atenolol 100 mg tablet 100 mg PO DAILY Qty: 30 6RF Follow-up/Referrals: Chapito Wiseman MD [Primary Care Provider] -
[2024-08-19 13:10] VITALS: BP 95/63; PULSE 62; RESP 16; O2SAT 97
== END 2024-08-19 13:19 | disposition home or self-care (01) ==
PROVIDERS: Emergency Provider Emergency Medicine; PCP Family Medicine
DX: M54.32 Sciatica, left side (principal); M79.605 Pain in left leg; I10 Essential (primary) hypertension; G40.909 Epilepsy, unspecified, not intractable, without status epilepticus; G80.9 Cerebral palsy, unspecified; Z87.891 Personal history of nicotine dependence; Z86.16 Personal history of COVID-19
CPT/HCPCS: 93971; 99284

== ENCOUNTER 2024-08-31 13:29 | Outpatient (CLI) | payer BC, SELFPAY ==
--- NOTE | ~2024-08-31 | XR_ITS ---
Lumbosacral Spine: AP and lateral views Clinical History: Pain Findings: The normal lordotic curve is maintained. The vertebral bodies and posterior elements are i ntact. Advanced facet arthropathy present throughout the lumbar spine. Mild degenerative change prese nt throughout. The sacroiliac joints are normally outlined. Impression: Moderate degenerative spondylosis overall, as above. Reviewed, dictated and finalized at location . Impression: Moderate degenerative spondylosis overall, as above.
--- NOTE | ~2024-08-31 | XR_ITS ---
Left Knee Technique: AP, lateral, and sunrise views were obtained. Clinical History: Pain Findings: No fracture or dislocation is seen. Osseous alignment is anatomic. There is minimal tricomp artmental degenerative change. Soft tissues are unremarkable. No joint effusion is seen. Impression: Minimal tricompartmental degenerative change. Reviewed, dictated and finalized at [facility]. Impression: Minimal tricompartmental degenerative change.
--- NOTE | ~2024-08-31 | XR_ITS ---
AP and lateral views of the left femur Clinical History: Pain Findings: No acute fracture or dislocation is seen. Osseous alignment is anatomic. Visualized joint s paces are grossly preserved. Soft tissues are unremarkable. Impression: Unremarkable left femoral radiographs. Reviewed, dictated and finalized at location [facility]. Impression: Unremarkable left femoral radiographs.
== END 2024-08-31 13:30 | disposition home or self-care (01) ==
LOC: MICIMG 13:31
PROVIDERS: PCP Family Medicine; Visit Provider Nurse Practitioner Adult Health
DX: M47.816 Spondylosis without myelopathy or radiculopathy, lumbar region (principal); M25.562 Pain in left knee; M79.652 Pain in left thigh
CPT/HCPCS: 72100; 73552; 73562

== ENCOUNTER 2024-10-28 08:55 | Outpatient (CLI) | payer BC, SELFPAY ==
--- NOTE | ~2024-10-28 | MR_ITS ---
MRI of the left knee Clinical history: Injury Technique: Coronal proton density and proton density-weighted images, sagittal proton-density and T2 fat-sat images, and axial proton-density fat-saturated images were acquired. Findings: Anterior and posterior cruciate ligaments are intact. Medial collateral ligament and the la teral collateral ligament complex are intact. Popliteus tendon is intact. Medial and lateral menisci are intact, without evidence of tear. There is extensive marrow edema throughout the medial tibial plateau region, without definite evidenc e for insufficiency fracture. Focal area cystic change of the far medial aspect of the medial tibial plateau. There is additional focal marrow edema at the posterior medial femoral condyle. There is hig h-grade chondromalacia along the medial patellar facet. Articular cartilage in the medial and lateral compartments is relatively well-preserved. Extensor mechanism is intact. No significant joint effusion or Clayton's cyst. Impression: Extensive marrow edema throughout the medial tibial plateau region with more focal marrow edema at th e posterior medial femoral condyle. Findings could reflect bone contusions from direct impaction inju ry versus other marrow edema. No definite fracture identified. 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 Reviewed, dictated and finalized at location . Impression: Extensive marrow edema throughout the medial tibial plateau region with more fo [place] marrow edema at the posterior medial femoral condyle. Findings could reflec t bone contusions from direct impaction injury versus other marrow edema. No de finite fracture identified. 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
== END 2024-10-28 08:56 | disposition home or self-care (01) ==
LOC: GOSHIMG 08:56
PROVIDERS: PCP Family Medicine; Visit Provider Nurse Practitioner Adult Health
DX: S89.90XA Unspecified injury of unspecified lower leg, initial encounter (principal); X58.XXXA Exposure to other specified factors, initial encounter; M79.18 Myalgia, other site; M17.10 Unilateral primary osteoarthritis, unspecified knee
CPT/HCPCS: 73721